=== PATIENT | female | born 1950 | race Caucasian/White ===

== ENCOUNTER 2018-04-20 19:24 | Inpatient (IN) | payer SELFPAY ==
[~2018-04-20] VITALS: Ht 154.9 cm; Wt 85.0 kg
[2018-04-20 19:32] VITALS: Ht 154.9 cm; Wt 85.0 kg
[2018-04-20 21:19] LABS: microscopic required? YES; urine erythrocyte 2+ (NEGATIVE)
[2018-04-20 21:25] LABS: PLATELET COUNT 251 x10^3mcL (130-400)
[2018-04-20 21:37] LABS: CALCIUM 9.1 mg/dL (8.5-10.1); CARBON DIOXIDE 23.6 mmol/L (21-32); CHLORIDE SERUM 101 mmol/L (98-107); CREATININE SERUM 0.8 mg/dL (0.6-1.0); GFR1 > 60 mL/min; GLUCOSE SERUM 146 mg/dL (74-106); POTASSIUM SERUM 3.7 mmol/L (3.5-5.1); SODIUM SERUM 135 mmol/L (136-145)
[2018-04-20 21:56] LABS: ALBUMIN 3.6 g/dL (3.4-5.0); ALKALINE PHOSPHATASE 102 U/L (46-116); ALT/SGPT 22 U/L (14-59); AST/SGOT 22 U/L (15-37); BILIRUBIN TOTAL 1.1 mg/dL (0.20-1.00); LIPASE 76 IU/L (73-393)
[2018-04-20 21:57] LABS: BAND NEUTROPHIL 5 % (0-10); MONOCYTE 3 % (0-7); PLATELET MORPHOLOGY PLATELETS NORMAL; SEGMENTED NEUTROPHILS 85 % (37-75); rbc morphology (normal/abnorm) NORMAL (NORMAL)
[2018-04-21] MEDS ORDERED: LEVOTHYROXIN0.025 M2 PO (01:21)
[2018-04-21 02:03] VITALS: BP 142/78
[2018-04-21 02:22] LABS: MAGNESIUM 1.9 mg/dL (1.8-2.4); PHOSPHOROUS 2.4 mg/dL (2.5-4.9)
[2018-04-21 02:31] LABS: T3 TOTAL 0.62 ng/mL
[2018-04-21 02:33] LABS: FREE T4 1.19 ng/dL (0.76-1.46); T4(THYROXINE) 8.2 ug/dL (4.7-13.3)
[2018-04-21 04:05] VITALS: BP 102/62
[2018-04-21 06:50] LABS: PLATELET COUNT 210 x10^3mcL (130-400); RED CELL DISTRIBUTION WIDTH 12.9 % (11.5-14.5)
[2018-04-21 07:25] LABS: CALCIUM 7.9 mg/dL (8.5-10.1); CARBON DIOXIDE 25.5 mmol/L (21-32); CHLORIDE SERUM 107 mmol/L (98-107); CREATININE SERUM 0.7 mg/dL (0.6-1.0); GFR1 > 60 mL/min; GLUCOSE SERUM 130 mg/dL (74-106); SODIUM SERUM 139 mmol/L (136-145)
[2018-04-21 07:53] LABS: BAND NEUTROPHIL 5 % (0-10); BASOPHIL 0 % (0-2); MONOCYTE 4 % (0-7); SEGMENTED NEUTROPHILS 80 % (37-75)
[2018-04-21 08:07] VITALS: BP 98/65
[2018-04-21 11:32] LABS: AMPHETAMINE QUAL UR NONE DETECTED (See below)
[2018-04-21 16:27] VITALS: BP 97/59
[2018-04-21 21:44] VITALS: BP 114/65
[2018-04-22 04:39] VITALS: BP 104/58
[2018-04-22 06:32] LABS: BASOPHIL % 0.1 % (0-2); PLATELET COUNT 228 x10^3mcL (130-400)
[2018-04-22 06:43] LABS: CALCIUM 8.3 mg/dL (8.5-10.1); CARBON DIOXIDE 24.6 mmol/L (21-32); CHLORIDE SERUM 105 mmol/L (98-107); CREATININE SERUM 0.7 mg/dL (0.6-1.0); GFR1 > 60 mL/min; GLUCOSE SERUM 135 mg/dL (74-106); PHOSPHOROUS 3.6 mg/dL (2.5-4.9); POTASSIUM SERUM 4.1 mmol/L (3.5-5.1); SODIUM SERUM 138 mmol/L (136-145)
[2018-04-22 08:07] VITALS: BP 106/61
[2018-04-22] MEDS ORDERED: KEF500 PO (12:43)
[2018-04-22] MEDS ORDERED: NORCO1 TA2 PO (12:44)
[2018-04-22 14:22] VITALS: BP 106/61
== END 2018-04-22 16:36 | disposition home or self-care (01) | DRG 341 ==
LOC: ED 19:24 → MU 04-21 00:42
PROVIDERS: Emergency Medicine; Internal Medicine; Surgery
PROC: 0DTJ4ZZ Resection of Appendix, Percutaneous Endoscopic Approach (ICD-10-PCS; principal; 2018-04-21 10:30)
DX: K35.80 Unspecified acute appendicitis (principal); N17.0 Acute kidney failure with tubular necrosis; E03.9 Hypothyroidism, unspecified; M19.90 Unspecified osteoarthritis, unspecified site; R31.9 Hematuria, unspecified; E83.51 Hypocalcemia; E78.5 Hyperlipidemia, unspecified; Z98.51 Tubal ligation status
CPT/HCPCS: 83880; 84439; J0690; J1170; J1885; J2175; J2250; J2405; J2543; J3010; J3490; J7030; Q0092